=== PATIENT | female | born 1965 | race Caucasian/White ===

== ENCOUNTER 2017-07-26 07:39 | Day surgery (SDC) | payer OTHER ==
[2017-07-26] MEDS ORDERED: Sodium Chloride 0.9% 10 ML Syringe FLUSH PRN (07:45)
[2017-07-26] MEDS ORDERED: Lactated Ringers 1,000 ML IV SCH (07:45)
[2017-07-26] MEDS ORDERED: Propofol 200 MG/20 ML SDV IV ONE (09:00)
[2017-07-26] MEDS ORDERED: Simethicone Drops 40 MG/0.6 ML 30 ML Bottle ONE (09:08)
--- NOTE | 2017-07-26 09:31 | PCM.OPNOTE ---
- General Post-Op/Procedure Note Date of Surgery/Procedure: 07/26/17 Operative Procedure(s): c scope with bx Findings: descending colon polyp sigmoid polyp rectal polyp sigmoid diverticulosis Pre Op Diagnosis: screening Post-Op Diagnosis: descending colon polyp. sigmoid polyp. rectal polyp. sigmoid diverticulosis Anesthesia Technique: [facility] – [place], [place] Primary Surgeon: Selvin Martinez Anesthesia Provider: Mateo Fischer Pathology: descending colon polyp sigmoid polyp rectal polyp Complications: None Condition: Good Free Text/Narrative:: see dictation #[id number]
--- NOTE | 2017-07-26 10:17 | OR ---
DATE OF OPERATION: 07/26/2017 SURGEON: Selvin Martinez MD PROCEDURES PERFORMED: Colonoscopy with cold forceps biopsy. PREOPERATIVE DIAGNOSIS: Need for screening C-scope. POSTOPERATIVE DIAGNOSIS: Descending colon polyp, sigmoid colon polyp, rectal polyp, and sigmoid diverticulosis. INDICATIONS FOR PROCEDURE: This is a 51-year-old white female who presents for her initial colonoscopy. She was offered and accepted same. DESCRIPTION OF OPERATION: After an excellent IV sedation was administered, digital rectal exam was performed. No marked abnormality was noted. The flexible colonoscope was inserted and advanced without difficulty to the cecum. The prep was excellent. The following findings were noted. Ascending colon, unremarkable. Transverse colon, unremarkable. Descending colon, small hyperplastic-appearing polyp, biopsied and sent for permanent. Sigmoid, mild diverticulosis, small polyp, biopsied and sent for permanent. Rectum, small polyp, biopsied and sent for permanent. Colon was deflated. Scope was removed. The patient tolerated the procedure well and was taken to recovery in a good condition. Results by letter. /[id number] /MODL
== END 2017-07-26 10:09 | disposition home or self-care (01) ==
LOC: FB.SDS 07:39
PROVIDERS: ATTEND Surgery
DX: Z12.11 Encounter for screening for malignant neoplasm of colon (principal); D12.5 Benign neoplasm of sigmoid colon; D12.8 Benign neoplasm of rectum; K63.5 Polyp of colon; K57.30 Diverticulosis of large intestine without perforation or abscess without bleeding; E78.00 Pure hypercholesterolemia, unspecified; Z79.899 Other long term (current) drug therapy
CPT/HCPCS: 45380; 88305; A9270; J2704; J7120